=== PATIENT | female | born 1960 ===

== ENCOUNTER 2020-07-03 19:04 | Inpatient (IN) ==
[2020-07-03] MEDS ORDERED: NS 0.9% 1000 ml BAG 2,000 ML IV ONE (19:49)
[2020-07-03] MEDS ORDERED: Ondansetron 4 mg VIAL 2 MG/ML 2 ml VIAL IV ONE (19:50)
[2020-07-03] MEDS ORDERED: cefTRIAXone 1 gm/50 mL NS BAG 1 GM/50 ML BAG IV ONE (20:00)
[2020-07-03] MEDS ORDERED: metroNIDAZOLE IV 500 MG/100ML 500 MG/100 ML BAG IVPB ONE (20:00)
[2020-07-03] MEDS ORDERED: Ondansetron 4 mg VIAL 2 MG/ML 2 ml VIAL IV PRN (21:13)
[2020-07-03] MEDS ORDERED: NS 0.9% 1000 ml BAG 1,000 ML IV SCH ×2 (21:15→22:14)
[2020-07-03 22:00] LABS: Blood Urea Nitrogen 10 mg/dL (6-24); CO2 Carbon Dioxide 25 mmol/L (22-32); Calcium 8.9 mg/dL (8.6-10.3); Chloride 84 mmol/L (101-111); EGFR African American 108.3 (>60); EGFR Non-African American 89.5 (>60); Glucose 62 mg/dL (70-100)
[2020-07-03] MEDS ORDERED: cefTRIAXone 1 gm/50 mL NS BAG 1 GM/50 ML BAG IVPB SCH (22:00)
[2020-07-03] MEDS ORDERED: metroNIDAZOLE IV 500 MG/100ML 500 MG/100 ML BAG IVPB SCH (22:00)
[2020-07-03 22:07] LABS: Sodium 119 mmol/L (135-145)
[2020-07-03 22:46] LABS: Anion Gap 10 mmol/L (2-11)
[2020-07-04 01:13] LABS: Calcium 8.3 mg/dL (8.6-10.3); EGFR African American 93.6 (>60); EGFR Non-African American 77.4 (>60); Potassium 3.6 mmol/L (3.5-5.0)
[2020-07-04] MEDS ORDERED: NS 0.9% 1000 ml BAG 1,000 ML IV SCH ×3 (01:30→21:45)
[2020-07-04 05:02] LABS: Calcium 7.9 mg/dL (8.6-10.3); EGFR African American 116.2 (>60); EGFR Non-African American 96.1 (>60); Potassium 4.1 mmol/L (3.5-5.0)
[2020-07-04] MEDS: metroNIDAZOLE IV 500 MG/100ML 500 MG/100 ML BAG IVPB SCH ×3 (05:56→21:46)
[2020-07-04] MEDS: Enoxaparin 40 MG/0.4 ML SYR SUBCUT SCH (09:08)
[2020-07-04 09:31] LABS: Calcium 8.2 mg/dL (8.6-10.3); EGFR African American 120.7 (>60); EGFR Non-African American 99.7 (>60); Potassium 3.6 mmol/L (3.5-5.0)
[2020-07-04 15:52] LABS: Carcinoembryonic Antigen 1.5 ng/mL (0.1-5.0)
[2020-07-04 20:24] LABS: Urine Appearance Clear; Urine Bilirubin Negative (Negative); Urine Blood 1+ (Negative); Urine Color Straw; Urine Glucose Negative (Negative); Urine Ketones Negative (Negative); Urine Nitrite Negative (Negative); Urine Protein Negative (Negative); Urine Specific Gravity 1.005 (1.002-1.030); Urine Urobilinogen Negative (Negative)
[2020-07-04] MEDS: cefTRIAXone 1 gm/50 mL NS BAG 1 GM/50 ML BAG IVPB SCH (20:31)
[2020-07-04 20:33] LABS: Urine Bacteria Absent (Absent); Urine Red Blood Cell Trace(0-2/hpf) (Absent); Urine White Blood Cell Absent (Absent)
[2020-07-04 20:44] LABS: Calcium 8.2 mg/dL (8.6-10.3); EGFR African American 133.2 (>60); EGFR Non-African American 110.1 (>60); Potassium 3.5 mmol/L (3.5-5.0)
[2020-07-04] MEDS ORDERED: Docusate LIQ 100 MG/10 ML UDC PO SCH (21:00)
[2020-07-05 05:19] LABS: ABS Basophils 0.1 10^3/ul (0-0.2); ABS Eosinophils 0.1 10^3/ul (0-0.6); ABS Lymphocytes 1.1 10^3/ul (1.0-4.8); ABS Monocytes 0.4 10^3/ul (0-0.8); ABS Neutrophils 3.7 10^3/ul (1.5-7.7); Eosinophil % 1.2 %; Hematocrit 31 % (35-47); Hemoglobin 11.1 g/dL (12.0-16.0); Mean Corpuscular HGB Conc 36 g/dL (31-36); Mean Corpuscular Hemoglobin 32 pg (27-31); Mean Corpuscular Volume 89 fL (80-97); Mean Platelet Volume 6.4 fL (7.4-10.4); Nucleated Red Blood Cells % 0.1; Platelet Count 258 10^3/uL (150-450); Red Blood Count 3.48 10^6 /uL (3.70-4.87); Red Cell Distribution Width 12 % (10-15); White Blood Count 5.3 10^3/uL (3.5-10.8)
[2020-07-05 05:37] LABS: Calcium 8.4 mg/dL (8.6-10.3); EGFR African American 138.9 (>60); EGFR Non-African American 114.8 (>60); Potassium 3.9 mmol/L (3.5-5.0)
[2020-07-05] MEDS: metroNIDAZOLE IV 500 MG/100ML 500 MG/100 ML BAG IVPB SCH ×3 (05:38→22:32)
[2020-07-05 08:07] LABS: Magnesium 1.9 mg/dL (1.9-2.7)
[2020-07-05] MEDS: Enoxaparin 40 MG/0.4 ML SYR SUBCUT SCH (08:17)
[2020-07-05] MEDS ORDERED: Magnesium Hydroxide LIQ 30 ML UDC PO PRN (08:21)
[2020-07-05] MEDS ORDERED: Senna TAB 8.6 mg TAB PO PRN (08:21)
[2020-07-05] MEDS ORDERED: Polyethylene Glycol 3350 17 GM PACKET PO PRN (08:21)
[2020-07-05] MEDS: Magnesium Hydroxide LIQ 30 ML UDC PO SCH ×2 (08:42→20:38)
[2020-07-05] MEDS ORDERED: Magnesium Sulfate 2 gm BAG 2 GM/50 ML BAG IVPB ONE (10:17)
[2020-07-05] MEDS: D5W 1/2 NS 1000 ml BAG 1,000 ML IV SCH ×2 (10:43→20:41)
[2020-07-05] MEDS: cefTRIAXone 1 gm/50 mL NS BAG 1 GM/50 ML BAG IVPB SCH (20:38)
[2020-07-06] MEDS: metroNIDAZOLE IV 500 MG/100ML 500 MG/100 ML BAG IVPB SCH ×2 (05:07→14:58)
[2020-07-06 05:51] LABS: Calcium 7.9 mg/dL (8.6-10.3); EGFR African American 130.5 (>60); EGFR Non-African American 107.8 (>60); Magnesium 2.2 mg/dL (1.9-2.7); Potassium 3.5 mmol/L (3.5-5.0)
[2020-07-06] MEDS: Enoxaparin 40 MG/0.4 ML SYR SUBCUT SCH (08:52)
[2020-07-06 12:59] LABS: Calcium 8.3 mg/dL (8.6-10.3); EGFR African American 133.2 (>60); EGFR Non-African American 110.1 (>60); Potassium 3.9 mmol/L (3.5-5.0)
[2020-07-06 16:26] LABS: C Reactive Protein 51.98 mg/L (<8.01)
[2020-07-06 16:38] VITALS: BP 132/69
== END 2020-07-06 17:45 | disposition home or self-care (01) | DRG 644 ==
LOC: ED 19:04 → MEDTELE 21:07
PROVIDERS: ADMIT Internal Medicine; ATTEND Internal Medicine